=== PATIENT | female | born 1985 | race Caucasian/White ===

== ENCOUNTER 2016-08-29 12:34 | Emergency (ER) | payer OTHER ==
[2016-08-29 13:42] LABS: ADD MANUAL DIFF? NO
--- NOTE | 2016-08-29 13:51 | ED PDOC ---
Arrival/HPI - General Chief Complaint: Wound Check Time Seen by Provider: 08/29/16 13:10 Historian: Patient - History of Present Illness Narrative History of Present Illness (Text): 08/29/16 13:33 31 y.o. female whose PMHx includes hydrocephalus with DATA MODELER shunt and L side hemiparesis who says that about a week and half ago, she tripped and fell and landed on her left knee, causing a knee wound. She was evaluated and had a negative x-ray and placed on oral antibiotics. She has since finished the cephalexin antibiotic course and saw her PMD, Dr. Hay, who evaluated her. She was sent to the ED because her PMD was concerned about the wound healing being poor and possible osteomyelitis developing. The patient says that she feels the pain in her knee when getting up and sitting down. She is on motrin for pain. No fever. Past Medical History - Provider Review Nursing Documentation Reviewed: Yes - Infectious Disease Hx of Infectious Diseases: None - Psychiatric Hx Substance Use: No - Anesthesia Hx Anesthesia: No Hx Anesthesia Reactions: No Hx Malignant Hyperthermia: No Family/Social History - Physician Review Nursing Documentation Reviewed: Yes Family/Social History: No Known Family HX Smoking Status: Never Smoked Hx Alcohol Use: No Hx Substance Use: No Allergies/Home Meds Allergies/Adverse Reactions: Allergies No Known Allergies Allergy (Verified 08/29/16 13:00) Review of Systems - Review of Systems Constitutional: absent: Fevers Eyes: Normal ENT: Normal Respiratory: absent: SOB Cardiovascular: absent: Chest Pain Gastrointestinal: absent: Abdominal Pain, Nausea, Vomiting Genitourinary Female: absent: Dysuria Musculoskeletal: Other (L knee pain) Skin: Other (L knee wound) Neurological: absent: Dizziness Endocrine: absent: Diaphoresis Physical Exam Vital Signs Temp Pulse Resp BP Pulse Ox 08/29/16 12:51 98.3 F 107 H 19 115/72 97 Temperature: Afebrile Blood Pressure: Normal Pulse: Tachycardic Respiratory Rate: Normal Appearance: Positive for: Well-Appearing, Non-Toxic, Comfortable Pain Distress: None Mental Status: Positive for: Alert and Oriented X 3 - Systems Exam Head: Present: Atraumatic, Normocephalic Pupils: Present: PERRL Conjunctiva: Present: Normal Mouth: Present: Moist Mucous Membranes Pharnyx: Present: Normal. No: ERYTHEMA, EXUDATE Neck: Present: Normal Range of Motion Respiratory/Chest: Present: Clear to Auscultation, Good Air Exchange. No: Respiratory Distress, Accessory Muscle Use Cardiovascular: Present: Normal S1, S2, Tachycardic. No: Murmurs Abdomen: Present: Normal Bowel Sounds. No: Tenderness, Distention, Peritoneal Signs Back: Present: Normal Inspection Upper Extremity: Present: Normal Inspection. No: Cyanosis, Edema Lower Extremity: Present: Other (L knee with infrapatellar wound on the upper medial tibial plateau. Wound with depressed scab anout 2x2 cm.). No: Edema Neurological: Present: GCS=15, CN II-XII Intact, Speech Normal Skin: Present: Warm, Dry, Normal Color. No: Rashes Psychiatric: Present: Alert, Oriented x 3, Normal Insight, Normal Concentration Medical Decision Making ED Course and Treatment: Patient with noted history; labs are unremarkable. Discussed with Dr. Hay; will get MRI of the knee to r/o osteomyelitis. PROCEDURE: MRI Left Knee Lime Hide Inspector : Wesley English MD IMPRESSION: Diffuse superficial patellar bursitis with ill-defined fluid collection. Subjacent marrow edema in patella. 08/29/16 17:37 Patient with bursitis with come fluid collection. No fever or leukocytosis and patient is able to move knee fully. Discussed with radiologist regarding marrow edema; radiologist said no enhancement noted, so unlikely to be osteomyelitis. There is no cellulitis noted and ranging of knee is not problematic. No evidence of infection at this time. No joint effusion. Very unlikely to be septic joint. As discussed with Dr. Hay, will start on oral antibiotic for wound prophylaxis and have her follow up with orthopedics. 08/29/16 17:45 Wound cleaned and dressed in the ER and placed in knee immobilizer. - Lab Interpretations Lab Results: 08/29/16 13:30 08/29/16 13:30 Lab Results 08/29/16 13:30: WBC 5.6, RBC 4.54, Hgb 13.7, Hct 41.4, MCV 91.2, MCH 30.2, MCHC 33.1, RDW 12.7, Plt Count 257, MPV 10.0, Gran % 65.7, Lymph % (Auto) 25.9, [place] % (Auto) 7.0 H, Eos % (Auto) 1.4 L, Baso % (Auto) 0.0, Gran # 3.68, Lymph # 1.5 , [place] # 0.4, Eos # 0.1, Baso # 0.00, Sodium 138, Potassium 3.6, Chloride 101, Carbon Dioxide 27, Anion Gap 14, BUN 15, Creatinine 0.6, Est GFR ( Amer) > 60, Est GFR (Non-Af Amer) > 60, Random Glucose 119 H, Calcium 9.3, Total Bilirubin 0.4, AST 23, ALT 26, Alkaline Phosphatase 69, Total Protein 9.0 H, Albumin 4.4, Globulin 4.6, Albumin/Globulin Ratio 1.0 L - RAD Interpretation Radiology Orders: 08/29/16 13:23 KNEE W/ & W/O CONTRAST LEFT [MRI] Stat Clinical Services Assistant: Radiologist - Medication Orders Current Medication Orders: Discontinued Medications Gadodiamide (Omniscan No Safepak) Confirm Administered Dose 4,305 mg IV .SimpleRegistry- MED ONE Stop: 08/29/16 15:07 - Scribe Statement The provider has reviewed the documentation as recorded by the Ronald Chris Provider Scribe Attestation: All medical record entries made by the Ronald were at my direction and personally dictated by me. I have reviewed the chart and agree that the record accurately reflects my personal performance of the history, physical exam, medical decision making, and the department course for this patient. I have also personally directed, reviewed, and agree with the discharge instructions and disposition. Disposition/Present on Arrival - Present on Arrival Any Indicators Present on Arrival: No History of DVT/PE: No History of Uncontrolled Diabetes: No Urinary Catheter: No History of Decub. Ulcer: No History Surgical Site Infection Following: None - Disposition Have Diagnosis and Disposition been Completed?: Yes Diagnosis: Leg wound, left, Patellar bursitis of left knee Disposition: HOME/ ROUTINE Disposition Time: 17:45 Patient Plan: Discharge Patient Problems: Current Active Problems Problem Status Diagnosed Leg wound, left Acute Patellar bursitis of left knee Acute Condition: GOOD Discharge Instructions (ExitCare): Knee Bursitis (ED) Additional Instructions: Knee immobilizer and cane for ambulation apply bacitracin daily and keep wound clean. Take the antibiotics as prescribed. Follow up with Dr. Hay in 2 days and orthopedics. Return to the emergency department if any new concerning symptoms. Prescriptions: Doxycycline Monohydrate [Mondoxyne Nl] 1 cap PO BID #20 capsule Referrals: Keara Hay MD [Primary Care Provider] - Follow up with primary Gregory Benítez III, MD [Medical Doctor] - Follow up with primary [facility] [place] [Outside] - Follow up with primary
[2016-08-29 13:52] LABS: EOS # 0.1 (0.0-0.7); EOS % 1.4 % (1.5-5.0); GRAN # 3.68 (1.4-6.5); GRAN % 65.7 % (50.0-68.0); HEMATOCRIT 41.4 % (36.0-48.0); LYMPH # 1.5 (1.2-3.4); LYMPH % 25.9 % (22.0-35.0); MEAN CELL VOLUME 91.2 fL (80.0-105.0); MEAN CORPUSCULAR HEMOGLOBIN 30.2 pg (25.0-35.0); MEAN CORPUSCULAR HGB CONC 33.1 g/dl (31.0-37.0); MONO # 0.4 (0.1-0.6); PLATELET COUNT 257 10^3/uL (120.0-450.0); RED CELL DISTRIBUTION WIDTH 12.7 % (11.5-14.5); WHITE BLOOD COUNT 5.6 10^3/ul (4.5-11.0)
[2016-08-29 13:58] LABS: ALKALINE PHOSPHATASE 69 U/L (38-133); ALT/SGPT 26 U/L (7-56); AST/SGOT 23 U/L (15-39); BILIRUBIN,TOTAL 0.4 mg/dL (0.2-1.3); BLOOD UREA NITROGEN 15 mg/dL (7-21); CALCIUM 9.3 mg/dL (8.4-10.5); CARBON DIOXIDE 27 mmol/L (21-33); CHLORIDE 101 mmol/L (98-107); GFR AFRICAN-AMERICAN > 60; GLUCOSE,RANDOM 119 mg/dL (70-110); POTASSIUM 3.6 mmol/L (3.6-5.0); SODIUM 138 mmol/L (132-148)
[2016-08-29] MEDS ORDERED: Gadodiamide 287 MG/ML VIAL (15ML) IV ONE (15:06)
--- NOTE | 2016-08-29 16:56 | MRI ---
PROCEDURE: MRI Left Knee HISTORY: Pain. COMPARISON: None available. TECHNIQUE: Multiecho multiplanar sequences were performed through the left knee. FINDINGS: ANTERIOR CRUCIATE LIGAMENT:: Intact. POSTERIOR CRUCIATE LIGAMENT:: Intact. MEDIAL MENISCUS:: Intact. LATERAL MENISCUS:: Intact. MEDIAL COLLATERAL LIGAMENT:: Intact. LATERAL COLLATERAL LIGAMENT COMPLEX:: Intact. QUADRICEPS TENDON:: Intact. PATELLAR TENDON:: Intact. CARTILAGE:: Intact. JOINT FLUID:: Intact. OSSEOUS STRUCTURES:: Intact. OTHER FINDINGS: Diffuse superficial patellar bursitis with ill-defined fluid collection. Subjacent marrow edema in patella.. IMPRESSION: Diffuse superficial patellar bursitis with ill-defined fluid collection. Subjacent marrow edema in patella..
[2016-08-29 18:14] VITALS: RESP 16
[2016-08-29 18:18] VITALS: BP 117/77; PULSE 88; TEMP 98.5; O2SAT 99
== END 2016-08-29 18:15 | disposition home or self-care (01) ==
LOC: ED 12:34
DX: M71.9 Bursopathy, unspecified (principal); M25.562 Pain in left knee
CPT/HCPCS: 29530; 73723; 80053; 85025; 99285; A9579